=== PATIENT | male | born 2005 | race Caucasian/White ===

== ENCOUNTER 2025-02-11 09:57 | Emergency (ER) | payer BC, OTHER, SELFPAY ==
[2025-02-11 10:04] VITALS: BP 141/83
--- NOTE | 2025-02-11 10:21 | ED.GENMED ---
History of Present Illness
General
Chief Complaint: Abdominal Symptoms
Source: patient
Exam Limitations: none
Time Seen by Provider: 02/11/25 10:12
History of Present Illness
History of Present Illness:
See MDM
Past History
Past History
ED Past Medical History: Other (Spina bifida )
ED Past Surgical History: Urological (artificial sphincter)
Social History
Tobacco: Non-smoker
Alcohol: None
Phy Exam
Physical Exam
Physical Exam:
See MDM
Course
Orders/Labs/Results
Orders:
Orders
02/11/25 10:20
0.9% Sodium Chloride 1000 ml [Nss] 1,000 ml IV BOLUS
02/11/25 10:42
Complete Blood Count/With Diff Urgent
Comprehensive Metabolic Panel Urgent
Lipase Urgent
02/11/25 10:56
Ketorolac [Toradol] 30 mg IV NOW STA
Ondansetron Injectable [Zofran] 4 mg IV NOW STA
02/11/25 11:42
CT Abd/pelvis W Iv Cont Urgent
Comment:
Reason For Exam: mid abd pain, vomiting
Abnormal Lab Results
02/11/25
10:42
WBC 15.3 H 10^3/uL
(4.8-10.8)
Hgb 11.9 L g/dL
(13.0-18.0)
Hct 37.1 L %
(39.0-52.0)
MCV 67.8 L fL
(80.0-94.0)
MCH 21.8 L pg
(27.0-31.0)
MCHC 32.1 L g/dL
(33.0-37.0)
RDW 15.9 H %
(11.5-14.5)
MPV 11.9 H fL
(7.4-10.4)
Abs Immat Gran (auto) 0.1 H 10^3/uL
(0-0.05)
Absolute Neuts (auto) 13.9 H 10^3/uL
(1.4-6.5)
Absolute Lymphs (auto) 0.8 L 10^3/uL
(1.2-3.4)
Neutrophils % 90.6 H %
(42.2-75.2)
Lymphocytes % 5.2 L %
(20.5-51.1)
Total Bilirubin 1.4 H mg/dl
(0.2-1.3)
02/11/25 10:42
02/11/25 10:42
Vital Signs
Initial and Last Documented VS:
Initial Vital Signs
Temp Pulse Resp BP Pulse Ox
98.2 F 78 20 141/83 99
02/11/25 10:04 02/11/25 10:04 02/11/25 10:04 02/11/25 10:04 02/11/25 10:04
Last Documented Vital Signs
Temp Pulse Resp BP Pulse Ox
98.2 F 76 18 108/62 97
02/11/25 10:04 02/11/25 13:00 02/11/25 13:00 02/11/25 12:00 02/11/25 13:00
MDM/Problems Addressed
Differential Diagnosis Includes:
Note:
CHIEF COMPLAINT(S)
Abdominal pain and vomiting.
HISTORY OF PRESENT ILLNESS
The patient is a 19-year-old male with a history of spina bifida, who presented with abdominal pain and vomiting. The symptoms began about a week ago after the patient, who attends [facility], experienced early satiety and abdominal cramping below
the sternum that worsened with food intake. On Saturday, he returned home and experienced severe cramps after meals, lasting about an hour, followed by vomiting. He vomited again the next morning after drinking only water. The patient reports relief
after vomiting, but the pain recurs. Vomitus is described as primarily green mucus, with no bile. He denies significant alcohol use but reports occasional marijuana use, last consumed a week ago. He has an artificial bladder sphincter, and he has
recently seen his neurologist. He consulted his aunt, a doctor, who recommended omeprazole, which he started last night. The patient is currently experiencing pain, though tolerable at the moment, and does not wish for nausea or pain medication
immediately.
CHRONIC MEDICAL CONDITIONS SIGNIFICANTLY AFFECTING CARE
Chronic conditions affecting care:
- Spina bifida
SOCIAL DETERMINANTS AFFECTING HEALTH
The patient occasionally uses marijuana, last used one week prior to the symptom onset.
EXTERNAL RECORDS REVIEWED
The patients mother mentioned he recently saw his neurologist at [place].
PHYSICAL EXAM
General: Alert, no acute distress.
Skin: Warm, dry.
Head: Normocephalic, atraumatic
Neck: Appears supple, trachea midline.
Eyes, Ears, Nose, Mouth, and Throat: Mildly dry mucous membranes
Cardiovascular: No signs of cyanosis
Respiratory: Respirations are non-labored.
Abdomen: Non-distended. Mild epigastric tenderness without rebound
Musculoskeletal: No deformities
Neurological: No focal neurological deficit observed.
Psychiatric: Cooperative, appropriate mood and affect.
PLAN
- Perform a CT scan to assess for potential issues.
- Conduct blood work.
- Administer intravenous fluids.
DIFFERENTIAL DIAGNOSIS
The Differential Diagnosis includes, in no particular order and is not limited to:
- Gastritis
- Peptic ulcer disease
- Gastroenteritis
- Pancreatitis
- Biliary colic
- Cannabis hyperemesis syndrome
- Functional dyspepsia
- Gastroesophageal reflux disease (GERD)
- Small bowel obstruction
- Appendicitis
SUMMARY OF ENCOUNTER
The patient presented to the emergency department with abdominal pain and vomiting, possibly linked to food intake and relieved by vomiting. Given his history of spina bifida and recent marijuana use, the working diagnosis includes gastrointestinal
and gallbladder-related issues. A CT scan and blood work were ordered to investigate further. Omeprazole was started per a family members advice.
INDEPENDENT REVIEW OF LABS AND INTERPRETATION OF TESTS
The plan includes conducting blood work.
MEDICAL DECISION MAKING
-Chronic conditions affecting care:
Spina bifida
Data:
Category 1:
- Lab tests planned: Blood work
- Imaging ordered: CT scan
-Risk:
Consideration of Admission/Observation: Escalation of care including admission/observation was considered given the complexity and risk of the patient�s presenting complaint, exam findings, and/or their underlying comorbidities. However, ultimately
I feel the patient is safe for outpatient management with close follow up. Reasoning: Work-up reassuring, does not reveal any acute life/organ threatening processes, patients symptoms well controlled upon reevaluation, reexamination is reassuring,
vitals are stable, patient agreeable with discharge, reliable for follow-up.
Care significantly affected by Social Determinants of Health: Marijuana use.
DIAGNOSIS
- Epigastric pain - ICD-10-CM R10.13
- Vomiting - ICD-10-CM R11.10
SUMMARY OF ENCOUNTER
The patient presented with abdominal pain and received a CT scan, which was non-diagnostic. The discussion highlighted the potential for gastrointestinal-related issues. The patient was administered Ondansetron (Zofran), after which all symptoms
resolved. Although the CT scan suggested potential prostatitis, the patient exhibited no urinary symptoms or lower abdominal pain.
PLAN
Outpatient follow-up with gastroenterology was recommended.
INDEPENDENT REVIEW OF LABS AND INTERPRETATION OF TESTS
- My independent interpretation of the CT scan is non-diagnostic but noted a possible concern for prostatitis.
MEDICATION RECONCILIATION
Ondansetron (Zofran) was administered for symptom relief.
MEDICAL DECISION MAKING
- Number and Complexity of Problems Addressed: Chronic conditions affecting care: Spina bifida; Differential diagnosis includes gastritis, peptic ulcer disease, gastroenteritis, pancreatitis, biliary colic, cannabis hyperemesis syndrome, functional
dyspepsia, gastroesophageal reflux disease (GERD), small bowel obstruction, appendicitis.
- Data:
- Category 1: Lab tests ordered, CT scan independently interpreted.
- Risk: Prescription medication was administered and outpatient follow-up was planned to manage care effectively.
DIAGNOSIS
- Epigastric pain - ICD-10-CM R10.13
- Vomiting - ICD-10-CM R11. Vomitin
*Pulse Oximetry
SaO2: 99
Oxygen Mode of Delivery: Room air
Patient hypoxic: no
*Critical Care Note
Total Time (30-74mins, 75-104mins- exclusive of procedures): Not Applicable
ED Attending Note
-
Portions of this chart may have been created with voice recognition software.� Occasional wrong word or��sound alike� substitutions may have occurred due to the inherent limitations of voice recognition software.
Discharge Plan
Departure
Patient Disposition: Home (Routine Discharge)
Date of Disposition: 02/11/25
Time of Disposition: 13:05
Patient with high blood pressure during this ER visit?: No
Discharge Problem:
Abdominal pain
Instructions: Abdominal Pain
Prescriptions:
New
diclofenac sodium 75 mg tablet,delayed release (DR/EC)
75 mg PO BID PRN (Reason: Pain) Qty: 20 0RF
ondansetron 4 mg Tablet,Disintegrating
4 mg PO BIDPRN PRN (Reason: nausea/vomiting) Qty: 10 0RF
No Action
oxybutynin chloride 15 MG tablet extended release 24hr
15 mg PO DAILY
mirabegron [Myrbetriq] 25 MG tablet extended release 24 hr
25 mg PO DAILY
acetaminophen 325 MG tablet
650 mg PO Q4HPRN PRN (Reason: pain, fever)
Referrals:
Michael Ahn MD [Active, Gastroenterology]
Maxim Pulido MD [Family Provider, Pediatrics]
Activity Restrictions/Additional Instructions:
Please return for any worsening symptoms.
You may return at any time if you have further concerns.
Please follow up with your doctor at the first available appointment, preferably this week.
Thank you for choosing [facility].
Interventions
Interventions:
*Risk Screen - Suicide Last Done: 02/11/25 10:04
*General Assessment Last Done: 02/11/25 11:00
*Neglect/Abuse Screening Last Done: 02/11/25 10:04
*ED- Fall Risk Assessment Last Done: 02/11/25 11:00
*ED COVID-19 Vaccine History Last Done: 02/11/25 12:58
*ED Influenza Vaccine History Last Done: 02/11/25 12:58
YI-Jpeadk-Pdyalrbuvj Assessment Last Done: 02/11/25 11:00
Discharge Date and Time
Print Language: BELARUSIAN
[2025-02-11] MEDS: NSS 1000 IV (10:42)
[2025-02-11 10:47] VITALS: BP 115/79
[2025-02-11 11:00] VITALS: BP 117/77
[2025-02-11 11:15] LABS: Hematocrit 37.1 % (39.0-52.0); Hemoglobin 11.9 g/dL (13.0-18.0); Mean Corp Hgb Conc. 32.1 g/dL (33.0-37.0); Mean Corpuscular Volume 67.8 fL (80.0-94.0); Nucleated Red Blood Cells % 0 % (-); Platelet Count 260 10^3/uL (130-400); Red Cell Dist. Width 15.9 % (11.5-14.5)
[2025-02-11] MEDS: ZOFRAN 4 MG IV (11:16)
[2025-02-11] MEDS: TORADOL 30 MG IV (11:16)
[2025-02-11 11:24] LABS: ALT (SGPT) 24 U/L (0-50); AST (SGOT) 45 U/L (17-59); Albumin 4.8 g/dl (3.5-5.0); Alkaline Phosphatase 69 U/L (38-126); Blood Urea Nitrogen 9 mg/dl (9-20); Calcium 10.0 mg/dl (8.4-10.2); Carbon Dioxide 24 mmol/L (22-30); Chloride 102 mmol/L (98-107); Glucose 97 mg/dl (70-99); Lipase 98 U/L (23-300); Potassium 3.7 mmol/L (3.5-5.1); Sodium 136 mmol/L (135-145); Total Protein 7.7 g/dl (6.3-8.2); eGFR > 60.00
[2025-02-11 12:00] VITALS: BP 108/62
== END 2025-02-11 13:20 | disposition home or self-care (01) ==
LOC: EMR 09:57
PROVIDERS: EMERGENCY PHYSICIAN Student in an Organized Health Care Education/Training Program; FAMILY PHYSICIAN Pediatrics
DX: R10.9 Unspecified abdominal pain (principal); Q05.9 Spina bifida, unspecified; N31.9 Neuromuscular dysfunction of bladder, unspecified
CPT/HCPCS: 99284; 96374; 96375; 96361; 74177; 80053; 83690; 85025; Q9967